=== PATIENT | female | born 1975 | race Caucasian/White ===

== ENCOUNTER 2016-09-24 08:58 | Emergency (ER) | payer OTHER ==
[2016-09-24 09:15] VITALS: BP 154/98
--- NOTE | 2016-09-24 09:25 | ED Physician Documentation ---
Sore Throat/Dental Pain - HISTORIAN Historian: patient, parent - HPI Stated Complaint: tooth ache , Chief Complaint: Dental Pain Additional Information: tooth ten fracture saries sepsis. this pt most of her teeth are fractured and or very advanced caries and partial rotting away Onset: days ago (1 weel) Context: Fractured Tooth, Abscess, Dental Caries, Possible Infection Associated Symptoms: moderate, severe Worsened By: heat, cold Further Comments: yes (pt agrees must see dentist very soon-most all her teeth are past salvage) - ROS CONST: no problems CVS/RESP: none GI/: nausea. denies: problems urinating, vomiting NEURO/PSYCH: headache, anxiety, depression - PAST HX Past History: none Allergies/Adverse Reactions: Allergies Allergy/AdvReac Type Severity Reaction Status Date / Time No Known Allergies Allergy Verified 09/24/16 09:22 Home Medications: Ambulatory Orders Medication Instructions Recorded NK [NK] 09/24/16 - SOCIAL HX Smoking History: less than 1 pack/day Alcohol Use: none Drug Use: none - FAMILY HX Family History: No - VITAL SIGNS Vital Signs: Vital Signs Temp Pulse Resp BP Pulse Ox 98.6 F 80 20 154/98 100 09/24/16 09:08 09/24/16 09:08 09/24/16 09:08 09/24/16 09:08 09/24/16 09:08 - REVIEWED ASSESSMENTS Nursing Assessment Reviewed: Yes Vitals Reviewed: Yes Dental Pain Physical Exam - EXAM General Appearance: moderate distress Head/Neck: head nml inspection, trachea midline. No: no lymphadenopathy Eyes: eyes nml inspection Mouth/Throat: lips nml, pharynx nml, no drooling, no air way problems, gum swelling around teeth, widespread dental decay. No: gums nml, voice nml Ear/Nose: nml inspection Respiratory: no resp. distress, breath sounds nml CVS: reg. rate & rhythm, heart sounds nml Abdomen: soft. No: tenderness Extremities: non-tender, nml ROM Skin: warm/dry, normal color. No: cyanosis, diaphoresis, jaundice Neuro/Psych: anxiety, depression Discharge Clincal Impression: dental abscess advanced decay Home Medications: Ambulatory Orders NK [NK] 09/24/16 Comments: pkt inst and agrees must see dentist for extensive repair Condition: Fair Disposition: HOME, SELF-CARE Decision to Admit: NO Decision Time: :30
== END 2016-09-24 09:35 | disposition home or self-care (01) ==
LOC: ED 08:58
DX: K02.9 Dental caries, unspecified (principal)
CPT/HCPCS: 99283

== ENCOUNTER 2017-03-10 15:26 | Emergency (ER) | payer MEDICAID, OTHER ==
--- NOTE | 2017-03-10 16:11 | ED Physician Documentation ---
Wrist Injury - HISTORIAN Historian: patient - HPI Chief Complaint: Wrist Injury Additional Information: fell on out stretched arm. Onset: just prior to arrival Where: home Severity: moderate Duration: persistent since Context: fall Location of Injury: L wrist Modifying Factors: pain on movement Further Comments: no - ROS CONST: no problems GI/: denies: nausea, vomiting NEURO: none CVS/RESP: none LNMP: denies: EYES/ENT: none MS/SKIN/LYMPH: none - PAST HX Past History: Rt handed, other (prev "broken arm" same place.) Allergies/Adverse Reactions: Allergies Allergy/AdvReac Type Severity Reaction Status Date / Time No Known Allergies Allergy Verified 03/10/17 16:25 Home Medications: Ambulatory Orders Medication Instructions Recorded NK [NK] 09/24/16 - SOCIAL HX Smoking History: cigarettes Alcohol Use: none Drug Use: none - FAMILY HX Family History: none - VITAL SIGNS Vital Signs: Vital Signs Temp Pulse Resp BP Pulse Ox 154/98 09/24/16 09:08 - REVIEWED ASSESSMENTS Nursing Assessment Reviewed: Yes Vitals Reviewed: Yes Wrist Physical Exam - Physical Exam General Appearance: no acute distress, alert Hand: tenderness (medial from finger tips to elbow) Wrist: tenderness (from fingers to elbow, medial) Neuro: sensation nml Vascular: no vascular compromise Forearm/Elbow/Arm: tenderness Skin: warm/dry, normal color Head/ENT: nml inspection Neck/Back: nml inspection Resp/CVS: chest non-tender Abdomen: non-tender ED Results Lab/Radiology - Radiology Radiology Impressions: no acute - Orders Orders: ED Orders Category Date Time Status WRIST 3 VIEWS OR MORE [RAD] Stat Exams 03/10/17 Ordered Discharge Clincal Impression: Sprain of wrist, left Qualifiers: Encounter type: initial encounter Qualified Code(s): S63.502A - Unspecified sprain of left wrist, initial encounter Contusion of wrist, left Qualifiers: Encounter type: initial encounter Qualified Code(s): S60.212A - Contusion of left wrist, initial encounter Referrals: Primary Doctor,No [Primary Care Provider] - 2 Days Condition: Good Disposition: 01 HOME, SELF-CARE Decision to Admit: NO Date of Decison to Admit: 03/10/17 Decision Time: 16:46
[2017-03-10 16:15] VITALS: BP 147/90
--- NOTE | 2017-03-10 16:29 | Diagnostic Imaging Report ---
[facility] [id number] [id number] Report Submission Date: Mar 10, 2017 4:25:30 PM CDT Patient Study Name: RENU DIANA Date: Mar 10, 2017 4:07:01 PM CDT Modality Type: CR Gender: F Description: UPPER EXTREMITY : 77 Institution: [facility] Physician: ANNA ALEGRIA Examination: Plain film wrist History: Wrist discomfort Comparison exams: None available Findings: 3 views the wrist demonstrate normal cortical margins. No fracture. No dislocation. No soft tissue abnormality. Impression: No acute osseous abnormality Electronically signed on Mar 10, 2017 4:25:30 PM CDT by: Milan COY
[2017-03-10] MEDS ORDERED: KETOROLAC TROMETHAMINE 30 MG/1ML VIAL IM ONE (16:46)
[2017-03-10] MEDS ORDERED: HYDROcodone /APAP 10/325 1 EACH TABLET PO ONE (16:47)
== END 2017-03-10 17:00 | disposition home or self-care (01) ==
LOC: ED 15:26
DX: S63.502A Unspecified sprain of left wrist, initial encounter (principal); S60.212A Contusion of left wrist, initial encounter; W19.XXXA Unspecified fall, initial encounter; Y93.9 Activity, unspecified; Y99.9 Unspecified external cause status
CPT/HCPCS: 73110; L3908; 99283